=== PATIENT | male | born 1975 | race Hispanic/Latino ===

== ENCOUNTER 2017-11-17 05:03 | Emergency (ER) | payer SELFPAY ==
[2017-11-17] MEDS ORDERED: Triamcinolone 40 MG/ML VIAL ONE (05:24)
== END 2017-11-17 05:44 | disposition home or self-care (01) ==
LOC: BURERS 05:03
DX: L23.7 Allergic contact dermatitis due to plants, except food (principal); E05.90 Thyrotoxicosis, unspecified without thyrotoxic crisis or storm; K21.9 Gastro-esophageal reflux disease without esophagitis; I10 Essential (primary) hypertension; G43.909 Migraine, unspecified, not intractable, without status migrainosus; Z87.891 Personal history of nicotine dependence; F41.9 Anxiety disorder, unspecified; F32.9 Major depressive disorder, single episode, unspecified; Y92.69 Other specified industrial and construction area as the place of occurrence of the external cause
CPT/HCPCS: 96372; J3301

== ENCOUNTER 2019-09-03 09:42 | Emergency (ER) | payer SELFPAY ==
[~2019-09-03 09:42] MED LIST: Iopamidol 370 76% 100 ML VIAL ONE
[2019-09-03] MEDS ORDERED: Fentanyl 100 MCG/2 ML VIAL ONE (10:11)
[2019-09-03] MEDS ORDERED: Ondansetron PF 4 MG/2 ML Vial ONE ×2 (10:12→11:38)
[2019-09-03] MEDS ORDERED: Thiamine HCl 200 MG/2 ML VIAL ONE (10:12)
[2019-09-03] MEDS ORDERED: Famotidine In NaCl 20 mg/50 ml Premix Bag ONE (10:12)
[2019-09-03 10:17] LABS: #Eosinphils 0.1 thou/uL (0.0-0.7); #Lymphocytes 0.9 thou/uL (1.20-3.40); #Monocytes 0.5 thou/uL (0.11-0.59); #Neutrophils 4.4 thou/uL (1.40-6.50); %Basophils 0.6 % (0.0-1.0); %Eosinophils 1.4 % (0.0-10.0); %Lymphocytes 15.7 % (21.0-51.0); %Monocytes 8.3 % (0.0-10.0); %Neutrophils 73.9 % (42.0-75.0); Hemoglobin 15.3 g/dL (14.0-18.0); Mean Corpuscular HGB CONC 32.7 g/dL (32.0-36.0); Mean Corpuscular Volume 88.9 fL (78.0-98.0); Mean Platelet Volume 6.7 fL (7.4-10.4); Platelet Count 149 thou/uL (130-400); RBC Distribution Width 13.8 % (11.5-14.5); Red Blood Cell (RBC) Count 5.29 mill/uL (4.70-6.10)
[2019-09-03 10:28] LABS: Bilirubin Negative (Negative); Blood, Urine Negative (Negative); Clarity Clear (Clear); Glucose, Urine (Dipstick) Negative (Negative); Leukocyte Negative (Negative); Nitrite Negative (Negative); Protein, Urine (Dipstick) Negative (Neg-Trace)
[2019-09-03 10:35] LABS: ALT (SGPT) 157 U/L (8-55); AST (SGOT) 212 U/L (5-34); Albumin 4.3 g/dL (3.5-5.0); Alkaline Phosphatase 87 U/L (40-110); Anion Gap 19 mmol/L (10-20); BUN (Urea Nitrogen) 6 mg/dL (8.9-20.6); Bilirubin, Total 1.2 mg/dL (0.2-1.2); Calc. Creatinine Clearance 0 mL/min (70-130); Calcium 9.2 mg/dL (7.8-10.44); Carbon Dioxide 23 mmol/L (22-29); Chloride 99 mmol/L (98-107); Estimated GFR-MDRD Greater than 90; Glucose 117 mg/dL (70-105); Lipase 17 U/L (8-78); Protein, Total 7.3 g/dL (6.0-8.3); Sodium 137 mmol/L (136-145)
[2019-09-03] MEDS ORDERED: metroNIDAZOLE 500 MG/100 ML BAG ONE (12:45)
[2019-09-03] MEDS ORDERED: Piperacillin/Tazobactam 4.5 GM VIAL ONE (12:45)
[2019-09-03] MEDS ORDERED: Sodium Chloride 0.9% 0 ML ONE (13:37)
--- NOTE | 2019-09-03 19:55 | CT ---
CT ABDOMEN AND PELVIS WITH CONTRAST: 09/03/19 Comparison is made with a CT of the abdomen dated 06/06/18. The lung bases are clear. The liver is mildly enlarged and diffusely low in density consistent with d iffuse fatty infiltration. No hepatic mass or dilated duct was seen. The gallbladder is quite large, measuring 10 cm in length. Internally, there is a suggestion of possibly a small stone near the neck . The size of the gallbladder is the same as it was on the prior study, however. The spleen is normal in size. The major finding on this study is a large cyst associated with the pancreas measuring about 13 x 6 c m. It was not present previously. Its alberto are somewhat thin and this is presumably a pancreatic pse udocyst. Previously a lucency at the junction of the head and uncinate process of the pancreas was me ntioned. This area is not impressive today. There is no streaky around the pancreas to suggest acute pancreatitis. The adrenal glands appear normal. A 2 cm cyst is see in the upper pole of the right kid estiven. This has not changed appreciably since a 2015 scan. There is no sign of renal obstruction. The a fred is normal in caliber. The bowel shows no distention or signs of obstruction. There is extensive diverticulosis present, par ticularly in the sigmoid region. There are a few areas here that shows some very slight streaking in the fat. The findings are not definite but could represent very early diverticulitis. No free air of free fluid was seen. CT of the pelvis shows no pelvic masses, fluid collections, or significant adenopathy. IMPRESSION: 1. Interval development of a large 13 x 6 cm pancreatic pseudocyst. 2. Very large gallbladder (10 cm long), possibly with a small stone. The large size was replicat ed on the prior exam, however. 3. Sigmoid diverticulosis but some areas showed some faint streaking. Cannot absolutely rule out very early diverticulitis. Correlate with clinical presentation. 4. Right renal cyst, stable. Findings discussed with Dr. Patterson at 1150 on 09/03/19. POS: HOME
== END 2019-09-03 13:13 | disposition short-term general hospital (02) ==
LOC: BURERS 09:42
DX: K86.3 Pseudocyst of pancreas (principal); R79.89 Other specified abnormal findings of blood chemistry; R11.2 Nausea with vomiting, unspecified; I10 Essential (primary) hypertension; E05.90 Thyrotoxicosis, unspecified without thyrotoxic crisis or storm; K21.9 Gastro-esophageal reflux disease without esophagitis; G43.909 Migraine, unspecified, not intractable, without status migrainosus; F41.9 Anxiety disorder, unspecified; F32.9 Major depressive disorder, single episode, unspecified; F17.210 Nicotine dependence, cigarettes, uncomplicated; Z79.899 Other long term (current) drug therapy
CPT/HCPCS: 74177; 80053; 81003; 83690; 84484; 85025; 96361; 96365; 96367; 96375; 96376; J2405; J2543; J3010; J3411; J3490; Q9967